=== PATIENT | female | born 1955 | race African-American/Black ===

== ENCOUNTER 2019-05-05 10:38 | Outpatient (CLI) | payer BC | END 2019-05-05 23:59 | disposition home or self-care (01) | LOC: MRI 10:38 | PROVIDERS: ATTEND Family Medicine | DX: M65.872 Other synovitis and tenosynovitis, left ankle and foot (principal); M19.072 Primary osteoarthritis, left ankle and foot | CPT/HCPCS: 73721-TC ==

== ENCOUNTER 2019-05-12 11:30 | Outpatient (CLI) | payer BC | END 2019-05-12 23:59 | disposition home or self-care (01) | LOC: WOU 11:30 | PROVIDERS: ATTEND Podiatrist Foot & Ankle Surgery | DX: M76.822 Posterior tibial tendinitis, left leg (principal); M72.2 Plantar fascial fibromatosis; M25.774 Osteophyte, right foot; M19.071 Primary osteoarthritis, right ankle and foot | CPT/HCPCS: G0463 ==

== ENCOUNTER 2019-05-19 09:30 | Outpatient (CLI) | payer BC | END 2019-05-19 23:59 | disposition home or self-care (01) | LOC: WOU 09:30 | PROVIDERS: ATTEND Podiatrist Foot & Ankle Surgery | PROC: 2W3RXYZ Immobilization of Left Lower Leg using Other Device (ICD-10-PCS; principal; 2019-05-19) | DX: M19.071 Primary osteoarthritis, right ankle and foot (principal); M25.774 Osteophyte, right foot; M25.571 Pain in right ankle and joints of right foot | CPT/HCPCS: G0463 ==

== ENCOUNTER 2019-06-02 09:00 | Outpatient (CLI) | payer BC | END 2019-06-02 23:59 | disposition home or self-care (01) | LOC: WOU 09:00 | PROVIDERS: ATTEND Podiatrist Foot & Ankle Surgery | PROC: 2W3RXYZ Immobilization of Left Lower Leg using Other Device (ICD-10-PCS; principal; 2019-06-02) | DX: M76.822 Posterior tibial tendinitis, left leg (principal); M72.2 Plantar fascial fibromatosis; R26.2 Difficulty in walking, not elsewhere classified; M25.571 Pain in right ankle and joints of right foot; M77.32 Calcaneal spur, left foot ==

== ENCOUNTER 2019-07-14 08:00 | Outpatient (CLI) | payer BC ==
[~2019-07-14 08:00] MED LIST: MORPHINE SULFATE INJ 4 MG/ML DISP.SYRIN ONE; ONDANSETRON HCL/PF 4 MG/2 ML VIAL ONE
== END 2019-07-14 23:59 | disposition home or self-care (01) ==
LOC: WOU 08:00
PROVIDERS: ATTEND Podiatrist Foot & Ankle Surgery
DX: M76.822 Posterior tibial tendinitis, left leg (principal); M25.774 Osteophyte, right foot; M19.071 Primary osteoarthritis, right ankle and foot
CPT/HCPCS: G0463; J2270; J2405

== ENCOUNTER 2019-09-01 08:05 | Outpatient (CLI) | payer BC ==
[2019-09-01] MEDS ORDERED: LIDOCAINE /MPF 1% VIAL 5 ML VIAL ONE (15:03)
== END 2019-09-01 23:59 | disposition home or self-care (01) ==
LOC: WOU 08:05
PROVIDERS: ATTEND Podiatrist Foot & Ankle Surgery
DX: M76.822 Posterior tibial tendinitis, left leg (principal); M72.2 Plantar fascial fibromatosis; R26.2 Difficulty in walking, not elsewhere classified; M19.071 Primary osteoarthritis, right ankle and foot; M25.774 Osteophyte, right foot
CPT/HCPCS: G0463; J3490

== ENCOUNTER 2019-10-13 08:20 | Outpatient (CLI) | payer BC | END 2019-10-13 23:59 | disposition home or self-care (01) | LOC: WOU 08:20 | PROVIDERS: ATTEND Podiatrist Foot & Ankle Surgery | DX: L60.0 Ingrowing nail (principal); M76.822 Posterior tibial tendinitis, left leg; M72.2 Plantar fascial fibromatosis; M25.571 Pain in right ankle and joints of right foot; M19.071 Primary osteoarthritis, right ankle and foot | CPT/HCPCS: G0463 ==

== ENCOUNTER 2019-12-15 08:15 | Outpatient (CLI) | payer MEDICARE, BC | END 2019-12-15 23:59 | disposition home or self-care (01) | LOC: WOU 08:15 | PROVIDERS: ATTEND Podiatrist Foot & Ankle Surgery | DX: M76.822 Posterior tibial tendinitis, left leg (principal); L60.0 Ingrowing nail; M72.2 Plantar fascial fibromatosis; R26.2 Difficulty in walking, not elsewhere classified; M25.571 Pain in right ankle and joints of right foot; M19.071 Primary osteoarthritis, right ankle and foot; M25.774 Osteophyte, right foot | CPT/HCPCS: G0463 ==

== ENCOUNTER 2020-02-16 08:00 | Outpatient (CLI) | payer MEDICARE, BC | END 2020-02-16 23:59 | disposition home or self-care (01) | LOC: WOU 08:00 | PROVIDERS: ATTEND Podiatrist Foot & Ankle Surgery | DX: M76.822 Posterior tibial tendinitis, left leg (principal); M72.2 Plantar fascial fibromatosis; R26.2 Difficulty in walking, not elsewhere classified; M19.071 Primary osteoarthritis, right ankle and foot; M25.774 Osteophyte, right foot; M25.572 Pain in left ankle and joints of left foot; M79.672 Pain in left foot | CPT/HCPCS: G0463 ==